=== PATIENT | male | born 1945 | race Caucasian/White ===

== ENCOUNTER 2017-04-17 21:28 | Emergency (ER) | payer MEDICARE ==
[2017-04-17 21:37] VITALS: BP 138/67; PULSE 83; RESP 20
[2017-04-17] MEDS ORDERED: CLINDAMYCIN 150 MG/ML 2 ML VIAL IM STA (21:57)
[2017-04-17] MEDS ORDERED: DIPH,PERTUS(ACELL)TETVAC-LF 0.5 ML VIAL IM ONE (21:58)
[2017-04-17 22:03] VITALS: TEMP 99.1
--- NOTE | 2017-04-17 22:07 | ED ---
Animal Bite HPI - General Chief Complaint: Animal Bite Stated Complaint: cat bite Time Seen by Provider: 04/17/17 21:42 Source: patient Mode of arrival: ambulatory Limitations: no limitations - History of Present Illness Initial Comments: 72-year-old male presents to the ER complaining of That occurred yesterday. Patient states he get the cat declawed and was trying to change the bandage when he bit down on his right and left second digits. Patient states the one hand is getting better however the right hand is getting worse. Patient states painful warm and swollen. No discharge no fevers no chills no nausea no vomiting. Patient unaware when his last tetanus was he knows he had it in the 90s. Patient states it's Is up-to-date with shots. - Related Data Home Medications Medication Instructions Recorded Confirmed Ascorbic Acid [Vitamin C] 1 tab PO DAILY 11/07/15 11/07/15 Aspirin [Adult Low Dose Aspirin EC] 81 mg PO DAILY 11/07/15 11/07/15 Atorvastatin [Lipitor] 20 mg PO HS 11/07/15 11/07/15 Barleygreen 1 tab PO DAILY 11/07/15 11/07/15 Fiberblend 1 applic PO DAILY 11/07/15 11/07/15 Garlic 1 tab PO DAILY 11/07/15 11/07/15 Multivitamins, Thera [Multivitamin] 1 tab PO DAILY 11/07/15 11/07/15 Ubidecarenone [Co Q-10] 1 tab PO DAILY 11/07/15 11/07/15 Previous Rx's Medication Instructions Recorded Clindamycin HCl [Cleocin] 300 mg PO Q8H #30 cap 04/17/17 Sulfamethox-Tmp 800-160Mg [Bactrim 1 each PO Q12HR #20 tab 04/17/17 DS 800-160 mg] Allergies Allergy/AdvReac Type Severity Reaction Status Date / Time Penicillins Allergy Rash/Hives Verified 04/17/17 21:37 Review of Systems ROS Statement: Those systems with pertinent positive or pertinent negative responses have been documented in the HPI. ROS Other: All systems not noted in ROS Statement are negative. Constitutional: Denies: fever, chills Skin: Reports: other (cat bite b/l hands) Neurological: Denies: headache, weakness Past Medical History Past Medical History: Hyperlipidemia History of Any Multi-Drug Resistant Organisms: None Reported Past Surgical History: Appendectomy, Hernia Repair Past Anesthesia/Blood Transfusion Reactions: No Reported Reaction Smoking Status: Never smoker Past Alcohol Use History: None Reported Past Drug Use History: None Reported General Exam Limitations: no limitations General appearance: alert, in no apparent distress Respiratory exam: Present: normal lung sounds bilaterally. Absent: respiratory distress, wheezes, rales, rhonchi, stridor Cardiovascular Exam: Present: regular rate, normal rhythm, normal heart sounds. Absent: systolic murmur, diastolic murmur, rubs, gallop, clicks Neurological exam: Present: alert, oriented X3, CN II-XII intact Psychiatric exam: Present: normal affect, normal mood Skin exam: Present: warm, dry, intact. Absent: normal color (erythema to right second digit, puncture wounds noted, pain with sports cartoonist strength), rash Course Vital Signs 04/17/17 21:32 Temperature 100.1 F H Pulse Rate 83 Respiratory 20 Rate Blood Pressure 138/67 O2 Sat by Pulse 96 Oximetry Medical Decision Making - Medical Decision Making Discussed with Dr. Foster we will to clean them ice and I am along with oral clindamycin and Bactrim due to patient's ALLERGY to penicillin. Patient aware to watch for increased redness swelling pain or fevers. Patient return if worsens Disposition Clinical Impression: Cat bite, Bite by animal, Cellulitis Disposition: HOME SELF-CARE Condition: Good Instructions: Animal Bite (ED), Cellulitis (ED) Prescriptions: Sulfamethox-Tmp 800-160Mg [Bactrim DS 800-160 mg] 1 each PO Q12HR #20 tab Clindamycin HCl [Cleocin] 300 mg PO Q8H #30 cap Referrals: Darwin Santos MD [Primary Care Provider] - 1-2 days
== END 2017-04-17 22:26 | disposition home or self-care (01) ==
LOC: EC 21:28
DX: L03.011 Cellulitis of right finger (principal); E78.5 Hyperlipidemia, unspecified; Z23 Encounter for immunization; Z79.899 Other long term (current) drug therapy; Z88.0 Allergy status to penicillin; Z79.82 Long term (current) use of aspirin; W55.01XA Bitten by cat, initial encounter
CPT/HCPCS: 90471; 90715; 96372; 99283

== ENCOUNTER 2017-04-25 14:27 | Emergency (ER) | payer MEDICARE ==
[2017-04-25 14:36] VITALS: BP 121/64; PULSE 86; RESP 20; TEMP 98
--- NOTE | 2017-04-25 14:55 | ED ---
General Adult HPI - General Chief complaint: Skin/Abscess/Foreign Body Stated complaint: med reaction Time Seen by Provider: 04/25/17 14:38 Source: patient, family, RN notes reviewed Mode of arrival: ambulatory Limitations: no limitations - History of Present Illness Initial comments: Patient is a pleasant 72-year-old male presenting to the emergency Department with rash. Rash is diffuse mostly in the trunk and somewhat in the arms. Rash is pruritic. Rash started this morning. Rash is slightly worse than when it started. Patient is on Bactrim and clindamycin secondary to recent cat bite. Patient has been taking antibiotics for one week. Cat bite was slightly red and swollen 1 week ago when a box her started however rash has resolved and patient has no discomfort in his fingers. No dyspnea. No swelling of the pharynx or tongue or face. - Related Data Home Medications Medication Instructions Recorded Confirmed Ascorbic Acid [Vitamin C] 1 tab PO DAILY 11/07/15 11/07/15 Aspirin [Adult Low Dose Aspirin EC] 81 mg PO DAILY 11/07/15 11/07/15 Atorvastatin [Lipitor] 20 mg PO HS 11/07/15 11/07/15 Barleygreen 1 tab PO DAILY 11/07/15 11/07/15 Fiberblend 1 applic PO DAILY 11/07/15 11/07/15 Garlic 1 tab PO DAILY 11/07/15 11/07/15 Multivitamins, Thera [Multivitamin] 1 tab PO DAILY 11/07/15 11/07/15 Ubidecarenone [Co Q-10] 1 tab PO DAILY 11/07/15 11/07/15 Previous Rx's Medication Instructions Recorded Clindamycin HCl [Cleocin] 300 mg PO Q8H #30 cap 04/17/17 Sulfamethox-Tmp 800-160Mg [Bactrim 1 each PO Q12HR #20 tab 04/17/17 DS 800-160 mg] methylPREDNISolone Dose Pack 24 mg PO DAILY #1 tab 04/25/17 [Medrol Dose Pack] Allergies Allergy/AdvReac Type Severity Reaction Status Date / Time Penicillins Allergy Rash/Hives Verified 04/25/17 14:36 Review of Systems ROS Statement: Those systems with pertinent positive or pertinent negative responses have been documented in the HPI. ROS Other: All systems not noted in ROS Statement are negative. Constitutional: Denies: fever Eyes: Denies: eye pain ENT: Denies: ear pain Respiratory: Denies: cough Cardiovascular: Denies: chest pain Endocrine: Denies: fatigue Gastrointestinal: Denies: abdominal pain Genitourinary: Denies: dysuria Musculoskeletal: Denies: back pain Skin: Reports: rash Past Medical History Past Medical History: Hyperlipidemia History of Any Multi-Drug Resistant Organisms: None Reported Past Surgical History: Appendectomy, Hernia Repair Past Anesthesia/Blood Transfusion Reactions: No Reported Reaction Smoking Status: Never smoker Past Alcohol Use History: None Reported Past Drug Use History: None Reported General Exam Limitations: no limitations General appearance: alert, in no apparent distress Head exam: Present: atraumatic Eye exam: Present: normal appearance, PERRL ENT exam: Present: normal oropharynx, other (No signs of angioedema) Neck exam: Present: normal inspection Respiratory exam: Present: normal lung sounds bilaterally Cardiovascular Exam: Present: regular rate, normal rhythm GI/Abdominal exam: Present: soft. Absent: tenderness Extremities exam: Present: normal inspection, other (Hands without evidence of erythema or rash or swelling) Neurological exam: Present: alert Psychiatric exam: Present: normal affect, normal mood Skin exam: Present: urticaria (Patient has diffuse urticarial rash mostly on the trunk. There is some extension to the neck and arms) Course Vital Signs 04/25/17 14:34 Temperature 98.0 F Pulse Rate 86 Respiratory 20 Rate Blood Pressure 121/64 O2 Sat by Pulse 99 Oximetry Disposition Clinical Impression: Urticaria Disposition: HOME SELF-CARE Condition: Stable Instructions: Urticaria (ED), Antibiotic Medication Allergy (ED) Additional Instructions: Hold antibiotics. [id number] Benadryl up to 4 times daily as needed. Return for difficulty breathing, swelling of the face or tongue or throat, worsening symptoms or other concerns. You may have an ALLERGY to sulfa medications or clindamycin. Prescriptions: methylPREDNISolone Dose Pack [Medrol Dose Pack] 24 mg PO DAILY #1 tab Referrals: Darwin Santos MD [Primary Care Provider] - 1-2 days Time of Disposition: 14:55
== END 2017-04-25 15:02 | disposition home or self-care (01) ==
LOC: EC 14:27
DX: L50.9 Urticaria, unspecified (principal); E78.5 Hyperlipidemia, unspecified; Z79.82 Long term (current) use of aspirin; Z79.899 Other long term (current) drug therapy; Z88.0 Allergy status to penicillin
CPT/HCPCS: 99282

== ENCOUNTER 2019-01-25 18:15 | Emergency (ER) | payer MEDICARE ==
[2019-01-25 18:28] VITALS: BP 154/71; PULSE 84; RESP 18; TEMP 98.7
--- NOTE | 2019-01-25 19:08 | ED ---
Animal Bite HPI - General Chief Complaint: Animal Bite Stated Complaint: Cat bite Time Seen by Provider: 01/25/19 18:31 Source: patient, RN notes reviewed, old records reviewed Mode of arrival: ambulatory Limitations: no limitations - History of Present Illness Initial Comments: Patient is a 73 year old male with cat bite over right fourth digit today,and presents with redness and swelling. Patient reports he has full range of motion and sensation of finger. CAT and patient are UTD on vaccines. He had cat bite a few years ago and found out at that time he was allergic to sulfa drugs. - Related Data Home Medications Medication Instructions Recorded Confirmed Ascorbic Acid [Vitamin C] 500 mg PO DAILY 11/07/15 04/25/17 Aspirin [Adult Low Dose Aspirin EC] 81 mg PO DAILY 11/07/15 04/25/17 Atorvastatin [Lipitor] 20 mg PO DAILY 11/07/15 04/25/17 Barleygreen 1 tab PO DAILY 11/07/15 04/25/17 Garlic 1 tab PO DAILY 11/07/15 04/25/17 Multivitamins, Thera [Multivitamin] 1 tab PO DAILY 11/07/15 04/25/17 Ubidecarenone [Co Q-10] 100 mg PO DAILY 11/07/15 04/25/17 Sulfamethox-Tmp 800-160Mg [Bactrim 1 tab PO Q12HR 04/25/17 04/25/17 DS 800-160 mg] Previous Rx's Medication Instructions Recorded Clindamycin HCl [Cleocin] 300 mg PO Q8H #30 cap 04/17/17 methylPREDNISolone Dose Pack 24 mg PO DAILY #1 tab 04/25/17 [Medrol Dose Pack] Doxycycline [Vibramycin] 100 mg PO BID #14 cap 01/25/19 Allergies Allergy/AdvReac Type Severity Reaction Status Date / Time Penicillins Allergy Rash/Hives Verified 01/25/19 18:29 Sulfa (Sulfonamide Allergy Rash/Hives Verified 01/25/19 18:29 Antibiotics) sulfamethoxazole Allergy Rash/Hives Verified 01/25/19 18:29 [From Bactrim] trimethoprim [From Bactrim] Allergy Rash/Hives Verified 01/25/19 18:29 Review of Systems ROS Statement: Those systems with pertinent positive or pertinent negative responses have been documented in the HPI. ROS Other: All systems not noted in ROS Statement are negative. Past Medical History Past Medical History: Hyperlipidemia History of Any Multi-Drug Resistant Organisms: None Reported Past Surgical History: Appendectomy, Hernia Repair Past Anesthesia/Blood Transfusion Reactions: No Reported Reaction Past Psychological History: No Psychological Hx Reported Smoking Status: Never smoker Past Alcohol Use History: None Reported Past Drug Use History: None Reported General Exam - General Exam Comments Initial Comments: 73 year old male, well appearing. Limitations: no limitations General appearance: alert, in no apparent distress Head exam: Present: atraumatic, normocephalic, normal inspection Eye exam: Present: normal appearance, PERRL, EOMI. Absent: scleral icterus, conjunctival injection, periorbital swelling ENT exam: Present: normal exam, mucous membranes moist Neck exam: Present: normal inspection. Absent: tenderness, meningismus, lymphadenopathy Respiratory exam: Present: normal lung sounds bilaterally. Absent: respiratory distress, wheezes, rales, rhonchi, stridor Cardiovascular Exam: Present: regular rate, normal rhythm, normal heart sounds. Absent: systolic murmur, diastolic murmur, rubs, gallop, clicks GI/Abdominal exam: Present: soft, normal bowel sounds. Absent: distended, tenderness, guarding, rebound, rigid Extremities exam: Present: normal inspection, full ROM, normal capillary refill, other (cellulitis over fourth finger of right hand. Patienthas puncture wounds from cat bites. Full ROM and sensation and less than 2 second cap refill. ). Absent: tenderness, pedal edema, joint swelling, calf tenderness Back exam: Present: normal inspection Neurological exam: Present: alert, oriented X3, CN II-XII intact Psychiatric exam: Present: normal affect, normal mood Skin exam: Present: warm, dry, intact, normal color. Absent: rash Course Vital Signs 01/25/19 18:26 Temperature 98.7 F Pulse Rate 84 Respiratory 18 Rate Blood Pressure 154/71 O2 Sat by Pulse 98 Oximetry Medical Decision Making - Medical Decision Making 73 year old male with cellulitis from cat bite of right fourth digit. Patient and cat are up to date, no need for rabies. Patient has small puncture wounds. No abscess at this time. Due to patient allergies patient started on doxycycline. Discussed hadn surgeon follow up and to watch for signs of tenosynovitis. return parameters discussed. Disposition Clinical Impression: Cat bite of finger, Cellulitis Disposition: HOME SELF-CARE Condition: Good Instructions (If sedation given, give patient instructions): Animal Bite (ED) Additional Instructions: Advised to complete the prescription of antibiotics. Follow-up with primary care doctor and hand specialists of symptoms continue to persist. If the area of redness and swelling worsens within the next 24-48 hours please return for reevaluation he may need IV antibiotic. Prescriptions: Doxycycline [Vibramycin] 100 mg PO BID #14 cap Is patient prescribed a controlled substance at d/c from ED?: No Referrals: Darwin Santos MD [Primary Care Provider] - 1-2 days Lance Ochoa DO [Medical Doctor] - 1-2 days Time of Disposition: 19:06
[2019-01-25] MEDS ORDERED: DOXYCYCLINE 100 MG CAP PO STA (19:14)
== END 2019-01-25 19:37 | disposition home or self-care (01) ==
LOC: EC 18:15
DX: S61.234A Puncture wound without foreign body of right ring finger without damage to nail, initial encounter (principal); L03.011 Cellulitis of right finger; E78.5 Hyperlipidemia, unspecified; Z79.82 Long term (current) use of aspirin; Z79.899 Other long term (current) drug therapy; Z88.0 Allergy status to penicillin; Z88.2 Allergy status to sulfonamides; W55.01XA Bitten by cat, initial encounter
CPT/HCPCS: 99283

== ENCOUNTER 2019-09-02 21:57 | Emergency (ER) | payer MEDICARE ==
[2019-09-02 22:11] VITALS: BP 134/69; PULSE 72; RESP 16; TEMP 98
[2019-09-02] MEDS ORDERED: LIDOCAINE 5% PATCH TOPICAL STA (22:40)
[2019-09-02] MEDS ORDERED: CYCLOBENZAPRINE 10 MG TAB PO STA (22:41)
--- NOTE | 2019-09-02 22:50 | ED ---
Back Pain HPI - General Chief Complaint: Back Pain/Injury Stated Complaint: Hip pain Time Seen by Provider: 09/02/19 22:19 Source: patient Limitations: no limitations - History of Present Illness Initial Comments: Patient is 74-year-old male presenting to the emergency department with a chief complaint of low back pain. Patient reports a gradual onset of right paraspinal pain is started this morning after he woke up. Patient reports the pain is exacerbated with ambulation, forward flexion and left rotation. Patient reports the pain radiates to the right buttock but not distally to that. She reports yesterday he was lifting heavy objects as he was doing a home improvement project. Patient reports taking ibuprofen minimal improvement. Patient denies urinary or bowel incontinence. Patient denies saddle anesthesia. Patient denies any abdominal pain, chest pain shortness of breath. - Related Data Home Medications Medication Instructions Recorded Confirmed Aspirin [Adult Low Dose Aspirin EC] 81 mg PO DAILY 11/07/15 09/02/19 Atorvastatin [Lipitor] 20 mg PO HS 11/07/15 09/02/19 Garlic 1 tab PO DAILY 11/07/15 09/02/19 Multivitamins, Thera [Multivitamin] 1 tab PO DAILY 11/07/15 09/02/19 Ubidecarenone [Co Q-10] 100 mg PO DAILY 11/07/15 09/02/19 Allergies Allergy/AdvReac Type Severity Reaction Status Date / Time Penicillins Allergy Rash/Hives Verified 09/02/19 23:09 Sulfa (Sulfonamide Allergy Rash/Hives Verified 09/02/19 23:09 Antibiotics) sulfamethoxazole Allergy Rash/Hives Verified 09/02/19 23:09 [From Bactrim] trimethoprim [From Bactrim] Allergy Rash/Hives Verified 09/02/19 23:09 Review of Systems ROS Statement: Those systems with pertinent positive or pertinent negative responses have been documented in the HPI. ROS Other: All systems not noted in ROS Statement are negative. Past Medical History Past Medical History: Hyperlipidemia History of Any Multi-Drug Resistant Organisms: None Reported Past Surgical History: Appendectomy, Hernia Repair Past Anesthesia/Blood Transfusion Reactions: No Reported Reaction Past Psychological History: No Psychological Hx Reported Smoking Status: Never smoker Past Alcohol Use History: None Reported Past Drug Use History: None Reported General Exam Limitations: no limitations General appearance: alert, in no apparent distress Head exam: Present: atraumatic, normocephalic, normal inspection Eye exam: Present: normal appearance Pupils: Present: normal accommodation ENT exam: Present: normal exam, normal oropharynx, mucous membranes moist, TM's normal bilaterally, normal external ear exam Neck exam: Present: normal inspection, full ROM Respiratory exam: Present: normal lung sounds bilaterally Cardiovascular Exam: Present: regular rate, normal rhythm, normal heart sounds GI/Abdominal exam: Present: soft. Absent: distended, tenderness, guarding, rebound Extremities exam: Present: normal inspection, full ROM, normal capillary refill, other (+2 ulnar and radial pulses bilaterally.) Back exam: Present: normal inspection, full ROM, tenderness, paraspinal tenderness (Right paraspinal tenderness). Absent: CVA tenderness (R), CVA tenderness (L), muscle spasm, vertebral tenderness Neurological exam: Present: alert, oriented X3 Psychiatric exam: Present: normal affect, normal mood Skin exam: Present: warm, intact, normal color Course Vital Signs 09/02/19 22:09 Temperature 98 F Pulse Rate 72 Respiratory 16 Rate Blood Pressure 134/69 O2 Sat by Pulse 98 Oximetry Medical Decision Making - Medical Decision Making Patient is 74-year-old male presenting to the emergency department with a chief complaint of low back pain. Physical examination is indicative of right paraspinal tenderness that radiates to the right buttock. Pain appears to be musculoskeletal in nature and the patient was lifting heavily last night and the pain had developed after he woke up from bed. No cauda equina signs. Patient given a Lidoderm patch and Flexeril. On reevaluation patient reports some improvement in symptoms. A shunt advised to take prescribed medication as directed. Patient will be discharged with Flexeril. Patient advised to follow- up with physical therapy. Patient given some instructions on exercises to perform to help with low back mobility. Disposition Clinical Impression: Mechanical back pain Disposition: HOME SELF-CARE Condition: Stable Instructions (If sedation given, give patient instructions): Acute Low Back Pain (ED) Additional Instructions: Please follow up with physical therapy. Please return to emergency department if symptoms worsen. Please see prescribe medication as directed. Is patient prescribed a controlled substance at d/c from ED?: No Referrals: Darwin Santos MD [Primary Care Provider] - 1-2 days Time of Disposition: 23:27
[2019-09-02] MEDS ORDERED: CYCLOBENZAPRINE 10MG STARTER 3 TAB BTL PO STA (23:26)
== END 2019-09-02 23:35 | disposition home or self-care (01) ==
LOC: EC 21:57
DX: M54.5 Low back pain (principal); M25.551 Pain in right hip; E78.5 Hyperlipidemia, unspecified; Z88.0 Allergy status to penicillin; Z88.2 Allergy status to sulfonamides; Z79.82 Long term (current) use of aspirin; Z79.899 Other long term (current) drug therapy; X50.0XXA Overexertion from strenuous movement or load, initial encounter; Y93.89 Activity, other specified
CPT/HCPCS: 99283

== ENCOUNTER 2023-03-01 18:34 | Emergency (ER) | payer MEDICARE ==
[2023-03-01 18:55] VITALS: RESP 16; TEMP 98
[2023-03-01] MEDS ORDERED: SODIUM CHLORIDE 0.9% 1,000 ML IV ONE (20:22)
--- NOTE | 2023-03-01 20:24 | ED ---
General Adult HPI - General Chief complaint: Syncope Stated complaint: syncope Time Seen by Provider: 03/01/23 20:10 Source: patient, RN notes reviewed Mode of arrival: ambulatory Limitations: no limitations - History of Present Illness Initial comments: 77-year-old male with no significant past medical history presents to the emergency department with a chief complaint of syncopal episode that happened at approximately 6:30 PM prior to arrival. Patient reports that he was sitting himself GV when he got up quickly, felt lightheaded and passed out. His reports that he was unconscious for approximately 1 minute to which he came to on his own. She reports never happened before. She denies any dizziness, lightheadedness, cough, congestion, fever, chest pain, shortness of breath, abdominal pain, nausea, vomiting, diarrhea. He denies recent sick contacts. He does report that he was out picking weeds all day long and may have overexerted himself. - Related Data Home Medications Medication Instructions Recorded Confirmed Aspirin [Adult Low Dose Aspirin EC] 81 mg PO DAILY 11/07/15 09/02/19 Atorvastatin [Lipitor] 20 mg PO HS 11/07/15 09/02/19 Garlic 1 tab PO DAILY 11/07/15 09/02/19 Multivitamins, Thera [Multivitamin] 1 tab PO DAILY 11/07/15 09/02/19 Ubidecarenone [Co Q-10] 100 mg PO DAILY 11/07/15 09/02/19 Allergies Allergy/AdvReac Type Severity Reaction Status Date / Time Penicillins Allergy Rash/Hives Verified 03/01/23 18:55 Sulfa (Sulfonamide Allergy Rash/Hives Verified 03/01/23 18:55 Antibiotics) sulfamethoxazole Allergy Rash/Hives Verified 03/01/23 18:55 [From Bactrim] trimethoprim [From Bactrim] Allergy Rash/Hives Verified 03/01/23 18:55 Review of Systems ROS Statement: Those systems with pertinent positive or pertinent negative responses have been documented in the HPI. ROS Other: All systems not noted in ROS Statement are negative. Past Medical History Past Medical History: Hyperlipidemia History of Any Multi-Drug Resistant Organisms: None Reported Past Surgical History: Appendectomy, Hernia Repair Past Anesthesia/Blood Transfusion Reactions: No Reported Reaction Past Psychological History: No Psychological Hx Reported Smoking Status: Never smoker Past Alcohol Use History: None Reported Past Drug Use History: None Reported General Exam - General Exam Comments Initial Comments: General: Alert, in no acute distress Head: atraumatic normocephalic. Eyes PERRL, EOMI intact, mucous membranes moist Respiratory: Lungs clear to auscultation bilaterally Cardiovascular: Heart rate regular rate and rhythm Abdominal: Soft without guarding or rebound Extremities: Normal inspection with full range of motion and normal capillary re fill Neuroogic: alert and oriented 3, CN II-XII intact, able to ambulate with steady gait Skin: warm dry and intact with normal color Limitations: no limitations Course Vital Signs 03/01/23 03/01/23 18:53 22:49 Temperature 98 F Pulse Rate 71 78 Respiratory 16 16 Rate Blood Pressure 132/64 137/74 O2 Sat by Pulse 96 97 Oximetry EKG Findings - EKG Comments: EKG Findings:: I interpreted the following: EKG performed at 19:02. Rate 65 bpm, normal sinus rhythm ME interval 158, QRS duration 91, QT/QTc 362/373 Medical Decision Making - Medical Decision Making Was pt. sent in by a medical professional or institution (, PA, COMPLIANCE NURSE, urgent care, hospital, or care home...) When possible be specific @ -[No] Did you speak to anyone other than the patient for history (EMS, parent, family, police, friend...)? What history was obtained from this source @ -[No] Did you review nursing and triage notes (agree or disagree)? Why? @ -[I reviewed and agree with nursing and triage notes] Were old charts reviewed (outside hosp., previous admission, EMS record, old EKG, old radiological studies, urgent care reports/EKG's, care home records)? Report findings @ -[No old charts were reviewed] Differential Diagnosis (chest pain, altered mental status, abdominal pain women, abdominal pain men, vaginal bleeding, weakness, fever, dyspnea, syncope, headache, dizziness, GI bleed, back pain, seizure, CVA, palpatations, mental health, musculoskeletal)? @ -[not applicable] EKG interpreted by me (3pts min.). @ -[As above] X-rays interpreted by me (1pt min.). @ -[None done] CT interpreted by me (1pt min.). @ -[None done] U/S interpreted by me (1pt. min.). @ -[None done] What testing was considered but not performed or refused? (CT, X-rays, U/S, labs)? Why? @ -[None] What meds were considered but not given or refused? Why? @ -[None] Did you discuss the management of the patient with other professionals (professionals i.e. Dr., PA, COMPLIANCE NURSE, lab, RT, psych nurse, social and political studies professor, business lawyer, teacher, learning officer, pillowcase maker)? Give summary @ -[No] Was smoking cessation discussed for >3mins.? @ -[No] Was critical care preformed (if so, how long)? @ -[No] Were there social determinants of health that impacted care today? How? (Homelessness, low income, unemployed, alcoholism, drug addiction, transportation, low edu. Level, literacy, decrease access to med. care, detention, rehab)? @ -[No] Was there de-escalation of care discussed even if they declined (Discuss DNR or withdrawal of care, Hospice)? DNR status @ -[No] What co-morbidities impacted this encounter? (DM, HTN, Smoking, COPD, CAD, Cancer, CVA, ARF, Chemo, Hep., AIDS, mental health diagnosis, sleep apnea, morbid obesity)? @ -[None] Was patient admitted / discharged? Hospital course, mention meds given and route, prescriptions, significant lab abnormalities, going to OR and other pertinent info. @ -Discharged. This is a 77-year-old male who presents the emergency department with syncope. Patient had a thorough history and physical exam pe rformed, physical exam reveals heart rate regular rate and rhythm, lungs clear to auscultation bilaterally abdomen is soft and non-tender. Patient able to ambulate with a steady gait. No neurological deficits are noted. patient had lab work and imaging performed which was essentially unremarkable. Patient I discussed the results in detail with the patient verbalized understanding and all questions were addressed. Return precautions were discussed at length. Discharged in stable condition. Case discussed with LIA Odonnell who agrees with plan of care Undiagnosed new problem with uncertain prognosis? @ -[No] Drug Therapy requiring intensive monitoring for toxicity (Heparin, Nitro, Insulin, Cardizem)? @ -[No] Were any procedures done? @ -[No] Diagnosis/symptom? @ -syncope Acute, or Chronic, or Acute on Chronic? @ -acute Uncomplicated (without systemic symptoms) or Complicated (systemic symptoms)? @ -ucomplicated Side effects of treatment? @ -[No] Exacerbation, Progression, or Severe Exacerbation? @ -[No] Poses a threat to life or bodily function? How? (Chest pain, [place], [place], pneumonia, PE, COPD, DKA, ARF, appy, cholecystitis, CVA, Diverticulitis, Homicidal, Suicidal, threat to staff... and all critical care pts) @ -low likelihood - Lab Data Result diagrams: 03/01/23 20:50 03/01/23 20:50 Lab Results 03/01/23 03/01/23 03/01/23 Range/Units 20:50 20:50 20:50 WBC 10.5 (3.8-10.6) k/uL RBC 4.57 (4.30-5.90) m/uL Hgb 14.1 (13.0-17.5) gm/dL Hct 44.0 (39.0-53.0) % MCV 96.2 (80.0-100.0) fL MCH 30.8 (25.0-35.0) pg MCHC 32.0 (31.0-37.0) g/dL RDW 12.2 (11.5-15.5) % Plt Count 237 (150-450) k/uL MPV 7.1 Neutrophils % 82 % Lymphocytes % 7 % Monocytes % 8 % Eosinophils % 1 % Basophils % 0 % Neutrophils # 8.6 H (1.3-7.7) k/uL Lymphocytes # 0.7 L (1.0-4.8) k/uL Monocytes # 0.8 (0-1.0) k/uL Eosinophils # 0.1 (0-0.7) k/uL Basophils # 0.0 (0-0.2) k/uL PT 10.6 (9.0-12.0) sec INR 1.0 (<1.2) APTT 21.7 L (22.0-30.0) sec Sodium 140 (137-145) mmol/L Potassium 4.1 (3.5-5.1) mmol/L Chloride 106 (98-107) mmol/L Carbon Dioxide 25 (22-30) mmol/L Anion Gap 9 mmol/L BUN 28 H (9-20) mg/dL Creatinine 1.12 (0.66-1.25) mg/dL Est GFR (CKD-EPI)AfAm 74 (>60 ml/min/1.73 sqM) Est GFR (CKD-EPI)NonAf 64 (>60 ml/min/1.73 sqM) Glucose 102 H (74-99) mg/dL Calcium 8.8 (8.4-10.2) mg/dL Magnesium 2.2 (1.6-2.3) mg/dL Total Bilirubin 0.4 (0.2-1.3) mg/dL AST 32 (17-59) U/L ALT 25 (4-49) U/L Alkaline Phosphatase 71 (38-126) U/L Troponin I (0.000-0.034) ng/mL Total Protein 6.5 (6.3-8.2) g/dL Albumin 4.0 (3.5-5.0) g/dL Urine Color Urine Appearance (Clear) Urine pH (5.0-8.0) Ur Specific [place] (1.001-1.035) Urine Protein (Negative) Urine Glucose (UA) (Negative) Urine Ketones (Negative) Urine Blood (Negative) Urine Nitrite (Negative) Urine Bilirubin (Negative) Urine Urobilinogen (<2.0) mg/dL Ur Leukocyte Esterase (Negative) 03/01/23 03/01/23 Range/Units 20:50 22:10 WBC (3.8-10.6) k/uL RBC (4.30-5.90) m/uL Hgb (13.0-17.5) gm/dL Hct (39.0-53.0) % MCV (80.0-100.0) fL MCH (25.0-35.0) pg MCHC (31.0-37.0) g/dL RDW (11.5-15.5) % Plt Count (150-450) k/uL MPV Neutrophils % % Lymphocytes % % Monocytes % % Eosinophils % % Basophils % % Neutrophils # (1.3-7.7) k/uL Lymphocytes # (1.0-4.8) k/uL Monocytes # (0-1.0) k/uL Eosinophils # (0-0.7) k/uL Basophils # (0-0.2) k/uL PT (9.0-12.0) sec INR (<1.2) APTT (22.0-30.0) sec Sodium (137-145) mmol/L Potassium (3.5-5.1) mmol/L Chloride (98-107) mmol/L Carbon Dioxide (22-30) mmol/L Anion Gap mmol/L BUN (9-20) mg/dL Creatinine (0.66-1.25) mg/dL Est GFR (CKD-EPI)AfAm (>60 ml/min/1.73 sqM) Est GFR (CKD-EPI)NonAf (>60 ml/min/1.73 sqM) Glucose (74-99) mg/dL Calcium (8.4-10.2) mg/dL Magnesium (1.6-2.3) mg/dL Total Bilirubin (0.2-1.3) mg/dL AST (17-59) U/L ALT (4-49) U/L Alkaline Phosphatase (38-126) U/L Troponin I <0.012 (0.000-0.034) ng/mL Total Protein (6.3-8.2) g/dL Albumin (3.5-5.0) g/dL Urine Color Light Yellow Urine Appearance Clear (Clear) Urine pH 7.0 (5.0-8.0) Ur Specific [place] 1.019 (1.001-1.035) Urine Protein Negative (Negative) Urine Glucose (UA) Negative (Negative) Urine Ketones Negative (Negative) Urine Blood Negative (Negative) Urine Nitrite Negative (Negative) Urine Bilirubin Negative (Negative) Urine Urobilinogen <2.0 (<2.0) mg/dL Ur Leukocyte Esterase Negative (Negative) Disposition Clinical Impression: Vasovagal syncope Disposition: HOME SELF-CARE Condition: Stable Instructions (If sedation given, give patient instructions): Syncope (ED) Additional Instructions: Please return to the emergency department symptoms worsen or persist Is patient prescribed a controlled substance at d/c from ED?: No Referrals: Marc Santos MD [STAFF PHYSICIAN] - 1-2 days [facility] [Provider Group] - 1-2 days Time of Disposition: 22:31
[2023-03-01 21:02] LABS: Basophils % (A) 0 %; Eosinophils # (A) 0.1 k/uL (0-0.7); Eosinophils % (A) 1 %; HGB 14.1 gm/dL (13.0-17.5); Lymphocytes # (A) 0.7 k/uL (1.0-4.8); Lymphocytes % (A) 7 %; MCH 30.8 pg (25.0-35.0); MCV 96.2 fL (80.0-100.0); Mean Platelet Volume 7.1; Monocytes # (A) 0.8 k/uL (0-1.0); Monocytes % (A) 8 %; Neutrophils # (A) 8.6 k/uL (1.3-7.7); Neutrophils % (A) 82 %; Platelet Count 237 k/uL (150-450); RBC 4.57 m/uL (4.30-5.90); RDW 12.2 % (11.5-15.5); WBC 10.5 k/uL (3.8-10.6)
[2023-03-01 21:11] LABS: Calcium 8.8 mg/dL (8.4-10.2); Magnesium 2.2 mg/dL (1.6-2.3); Potassium 4.1 mmol/L (3.5-5.1); Total Bilirubin 0.4 mg/dL (0.2-1.3); Total Protein 6.5 g/dL (6.3-8.2)
[2023-03-01 21:34] LABS: Prothrombin Time 10.6 sec (9.0-12.0)
[2023-03-01 21:42] LABS: Partial Thromboplastin Time 21.7 sec (22.0-30.0)
--- NOTE | 2023-03-01 21:43 | XR ---
EXAMINATION TYPE: XR chest 2V DATE OF EXAM: 03/01/2023 COMPARISON: None HISTORY: 77-year-old male syncope TECHNIQUE: AP and lateral views FINDINGS: Heart normal size. Aorta and pulmonary vasculature within normal limits. Mild interstitial prominence is chronic appearance. No consolidation or pleural effusion. IMPRESSION: No acute cardiopulmonary process.
[2023-03-01 22:41] LABS: Appearance,Urine Clear (Clear); Bilirubin,Urine Negative (Negative); Blood,Urine Negative (Negative); Color,Urine Light Yellow; Glucose,Urine (UA) Negative (Negative); Ketones,Urine Negative (Negative); Leukocyte Esterase,Urine Negative (Negative); Nitrite,Urine Negative (Negative); Protein,Urine Negative (Negative); Specific Gravity,Urine 1.019 (1.001-1.035); Urobilinogen,Urine <2.0 mg/dL (<2.0)
[2023-03-01 22:51] VITALS: BP 137/74; PULSE 78
== END 2023-03-01 22:51 | disposition home or self-care (01) ==
LOC: EC 18:34
DX: R55 Syncope and collapse (principal); E78.5 Hyperlipidemia, unspecified; Z88.2 Allergy status to sulfonamides; Z88.0 Allergy status to penicillin; Z79.82 Long term (current) use of aspirin; Z79.899 Other long term (current) drug therapy
CPT/HCPCS: 36415; 71046; 80053; 81003; 83735; 84484; 85025; 85610; 85730; 93005; 96360; 99284